=== PATIENT | female | born 1960 | race Caucasian/White ===

== ENCOUNTER 2019-05-23 10:00 | Inpatient (IN) ==
--- NOTE | 2019-05-23 11:22 | Diag Imaging Result Doc PS360 ---
CHEST-PORTABLE - 05/23/2019 INDICATION: COUGH/SPUTUM COMPARISON: None FINDINGS: There is a left PICC line in good position with the catheter tip at the upper SVC. Lung volumes are low. There are nonspecific increased markings particularly in the right lung base. Heart size is top normal. No pneumothorax or pleural effusion. IMPRESSION: Nonspecific atelectasis or faint infiltrate in the right lung base. Electronically signed by Raffi Shea 05/23/2019 11:19 AM
[2019-05-23 11:26] LABS: ALLEN TEST YES; BE 2.8 mmoll (-3.0-3.0); BLOOD TYPE ARTERIAL; MODALITY ROOM AIR; O2HB 93.4 % (95.0-99.0); PCO2(98.6) 40 mmHg (35-45); PO2(98.6) 72 mmHg (60-100); SAMPLE BLOOD; SAO2 96.3 % (95.0-100.0); THB 10.6 g/dL (11.5-17.4); pH(98.6) 7.44 (7.35-7.45)
[2019-05-23 11:30] LABS: BASO# 0.04 X1000 (0.0-0.2); BASO% 0.6 % (0.0-0.8); EOS# 0.04 X1000 (0.0-0.7); EOS% 0.6 % (0.0-10.0); HEMATOCRIT 33.2 % (37.0-47.0); HEMOGLOBIN 10.6 g/dL (12.0-16.0); LYMPH% 16.9 % (20.5-51.1); MCH 28.9 PG (27-31); MCHC 31.9 g/dL (33-37); MCV 90.5 FL (81-99); MONO# 0.41 X1000 (0.11-0.59); MONO% 5.8 % (1.7-9.3); MPV 10.5 FL (7.4-10.4); NEUT# 5.42 X1000 (1.4-6.5); NEUT% 76.1 % (42.2-75.2); PLT 240 X1000 (130-400); RBC 3.67 XMIL (4.2-5.4); RDW 12.8 % (11.5-14.5); WBC 7.11 X1000 (4.8-10.8)
[2019-05-23 11:51] LABS: AGAP 8; BUN 10 mg/dL (8-22); CALCIUM 7.6 mg/dL (8.8-10.2); CHLORIDE 101 mmol/L (98-107); COSMO 267; CREATININE 0.7 mg/dL (0.5-0.9); ESTIMATED GFR > 60; GLUCOSE 97 mg/dL (70-104); POTASSIUM 5.5 mmol/L (3.5-5.1); SODIUM 134 mmol/L (136-145); TCO2 25 mmol/L (25-35)
--- NOTE | 2019-05-23 13:29 | PROVIDER DOCUMENTATION ---
This chart was entered by Nuzhat Paulson Scribe, acting as scribe for Adonay Martinez MD. HPI-Fever - General Chief Complaint: Fever Stated Complaint: FEVER Time Seen by Provider: 05/23/19 10:15 Source: patient Allergies/Adverse Reactions: Patient Allergies Allergy/AdvReac Type Severity Reaction Status Date / Time cephalexin [From Keflex] Allergy RASH Verified 05/13/19 10:06 ciprofloxacin [From Cipro] Allergy RASH Verified 05/13/19 10:06 Sulfa (Sulfonamide Allergy RASH Verified 05/13/19 10:06 Antibiotics) tb skin test Allergy RASH Uncoded 05/23/19 10:18 Home Medications: Home Medication List Medication Instructions Recorded Confirmed Last Taken Type Albuterol Sulfate [Albuterol 2 puff INH Q4H PRN PRN 05/23/19 05/23/19 05/23/19 History Sulfate Hfa] Atenolol 1 tab PO DIRECTED 05/23/19 05/23/19 05/23/19 History Azelastine 137 Mcg Nasal [place] 2 puff INH BID 05/23/19 05/23/19 05/23/19 History [Astelin Nasal [place]] Buprenorphine HCl/Naloxone HCl 0.5 tab SUBLINGUAL DIRECTED 05/23/19 05/23/19 05/23/19 History [Buprenorp-Nalox 8-2 mg Sl Film] Celecoxib 1 tab PO PRN PRN 05/23/19 05/23/19 2 Weeks Ago History ~05/09/19 Ertapenem 1 gm/Ns [Invanz 1 gm/Ns] 1 dose IV DAILY 05/23/19 05/23/19 05/23/19 History Escitalopram [Lexapro] 2 tab PO QAM 05/23/19 05/23/19 05/23/19 History Folic Acid 1 tab PO DAILY 05/23/19 05/23/19 05/23/19 History Furosemide 1 tab PO DAILY 05/23/19 05/23/19 05/23/19 History Levothyroxine [Synthroid] 1 tab PO QAM 05/23/19 05/23/19 05/23/19 History Linaclotide [Linzess] 1 tab PO QAM 05/23/19 05/23/19 05/23/19 History Liraglutide [Victoza] 1 dose IM DAILY 05/23/19 05/23/19 05/23/19 History Metformin HCl [Metformin HCl ER] 1 tab PO BID 05/23/19 05/23/19 05/23/19 History Modafinil 2 tab PO QAM 05/23/19 05/23/19 05/23/19 History Montelukast [Singulair] 1 tab PO QHS 05/23/19 05/23/19 05/22/19 History Olopatadine [Patanase] 2 puff INH BID 05/23/19 05/23/19 05/23/19 History - History of Present Illness-Fever Nature of Presenting Problem: Patient is a 58 year old female who presents with fever and productive cough. States symptoms started this morning. Report she is currently on infusions of Invanz for an UTI that is being followed by Dr. Dempsey. Does not report nausea and vomiting. Fever Severity/Quality: reports: greater than 102 F Onset/Duration: reports: this morning Timing: reports: still present Severity: reports: mild Recent Illness?: reports: UTI Cognitive Baseline: alert, oriented x3 Associated Symptoms: reports: cough Similar Symptoms Previously?: No Recently seen or treated by another doctor?: Yes Review of Systems - Adult - REVIEW OF SYSTEMS - ADULT Constitutional: reports: see HPI, fever. denies: chills, fatique Eyes: reports: no symptoms reported Ears, Nose, Mouth & Throat: reports: sinus problem (drainage). denies: tinnitus, throat pain Cardiovascular: reports: no symptoms reported Respiratory: reports: see HPI, cough. denies: shortness of breath, wheezing Gastrointestinal: reports: no symptoms reported Genitourinary: reports: frequency. denies: discharge, hematuria Musculoskeletal: reports: back pain (lower). denies: muscle aches, neck pain Integumentary: reports: no symptoms reported Neurological: reports: no symptoms reported Psychiatric: reports: no symptoms reported Endocrine: reports: no symptoms reported Hematologic/Lymphatic: reports: no symptoms reported Allergic/Immunologic: reports: no symptoms reported All Other Systems: Reviewed and Negative Past History - Adult - PAST MEDICAL HISTORY-ADULT Review of Records: reports: Old Records Reviewed, Nursing Assessment Review, Medications Reviewed, Social history reviewed & non-contributory. Major Childhood Illnesses: reports: denies history Cardiovascular: reports: HTN Respiratory: reports: asthma, sleep apnea Gastrointestinal: reports: IBS Obstetrical/Gynecological: reports: denies history Genitourinary: reports: denies history Musculoskeletal: reports: chronic pain, fibromyalgia Neurological: reports: denies history Psychiatric: reports: anxiety Endocrine/Immune: reports: Diabetes, thyroid disorder Other Conditions: reports: denies history - PRIOR SURGERIES/PROCEDURES Surgical/Procedure History: reports: hysterectomy, , gastric bypass - IMMUNIZATION STATUS Childhood Immunizations: See Nurse Assessment Flu Vaccine: See Nurse Assessment - FAMILY HISTORY Family History: reviewed, not pertinent - SOCIAL HISTORY Smoking: denies Substance Use: denies Physical Exam-General - PHYSICAL EXAM-ADULT Initial Vital Signs Reviewed: Yes - CONSTITUTIONAL General Appearance: alert, no apparent distress. negative: lethargic - HEAD, EARS, NOSE, MOUTH & THROAT HENMT: normocephalic/atraumatic, moist mucous membranes. negative: angioedema - RESPIRATORY Respiratory: chest non-tender, lungs clear, normal breath sounds. negative: crackles, stridor, wheezing - CARDIOVASCULAR Cardiovascular: normal peripheral pulses, regular rate, rhythm. negative: tachycardia - GASTROINTESTINAL (ABDOMEN) Abdominal Exam: normal bowel sounds, non tender, soft. negative: guarding, rebound - MUSCULOSKELETAL Extremity: non-tender, normal inspection. negative: deformity - SKIN Integumentary: normal color, normal turgor, warm/dry. negative: diaphoresis, erythema, rash - NEUROLOGIC Neurologic: grossly normal. negative: aphasia, facial droop - PSYCHIATRIC Psych/Mental Status: normal mood/affect, oriented x 3. negative: anxious Progress - PLAN OF CARE/RESULTS Progress/Plan/Lab Results: Vital Signs - 8 hr 05/23/19 10:04 05/23/19 10:11 05/23/19 11:00 Temperature 98.9 F Pulse Rate 88 Respiratory Rate 17 Blood Pressure 111/73 127/83 O2 Sat by Pulse Oximetry 94 L 98 93 L 05/23/19 12:00 05/23/19 13:00 Temperature Pulse Rate Respiratory Rate Blood Pressure O2 Sat by Pulse Oximetry 96 99 05/23/19 11:12 Influenza Screen - Final Nasopharyngeal Laboratory Results - last 24 hr 05/23/19 05/23/19 05/23/19 11:12 11:12 11:12 WBC 7.11 RBC 3.67 L Hgb 10.6 L Hct 33.2 L MCV 90.5 MCH 28.9 MCHC 31.9 L RDW Std Deviation 12.8 Plt Count 240 MPV 10.5 H Immature Gran % (Auto) 0.0 Neut % (Auto) 76.1 H Lymph % (Auto) 16.9 L [place] % (Auto) 5.8 Eos % (Auto) 0.6 Baso % (Auto) 0.6 Immature Gran # (Auto) 0.00 Neut # (Auto) 5.42 Lymph # (Auto) 1.20 [place] # (Auto) 0.41 Eos # (Auto) 0.04 Baso # (Auto) 0.04 Specimen Type Sample Site pH pCO2 pO2 HCO3 Base Excess Oxyhemoglobin ABG O2 Sat (Calculated) ABG O2 Saturation ABG Carboxyhemoglobin ABG Methemoglobin Mathew Test A-a O2 Difference Total Hemoglobin Lactate Blood Gas Modality FiO2 % Sodium 134 L Potassium 5.5 H Chloride 101 Carbon Dioxide 25 Anion Gap 8 BUN 10 Creatinine 0.7 Estimated GFR/1.73 m2 > 60 BUN/Creatinine Ratio 14 Glucose 97 Calculated Osmolality 267 Calcium 7.6 L Plasma Lactate 0.8 05/23/19 11:16 WBC RBC Hgb Hct MCV MCH MCHC RDW Std Deviation Plt Count MPV Immature Gran % (Auto) Neut % (Auto) Lymph % (Auto) [place] % (Auto) Eos % (Auto) Baso % (Auto) Immature Gran # (Auto) Neut # (Auto) Lymph # (Auto) [place] # (Auto) Eos # (Auto) Baso # (Auto) Specimen Type ARTERIAL Sample Site R RADIAL pH 7.44 pCO2 40 pO2 72 HCO3 27.0 H Base Excess 2.8 Oxyhemoglobin 93.4 L ABG O2 Sat (Calculated) 14.0 L ABG O2 Saturation 96.3 ABG Carboxyhemoglobin 2.00 ABG Methemoglobin 1.0 Mathew Test YES A-a O2 Difference 28.0 Total Hemoglobin 10.6 L Lactate 0.70 Blood Gas Modality ROOM AIR FiO2 % 21.0 Sodium Potassium Chloride Carbon Dioxide Anion Gap BUN Creatinine Estimated GFR/1.73 m2 BUN/Creatinine Ratio Glucose Calculated Osmolality Calcium Plasma Lactate Orders Category Date Time Status Saline Loc NOW Care 05/23/19 11:00 Active CHEST-PORTABLE [RAD] Stat Exams 05/23/19 11:00 Completed ABG [RESP] Routine Lab 05/23/19 11:16 Completed BASIC METABOLIC PANEL [CHEM] Stat Lab 05/23/19 11:12 Completed BLOOD CULTURE [BLDCUL] Stat Lab 05/23/19 11:10 Results CBC WITH ELECTRONIC DIFF [HEME] Stat Lab 05/23/19 11:12 Completed INFLUENZA SCREEN A/B Stat Lab 05/23/19 11:12 Completed LACTATE, PLASMA [CHEM] Stat Lab 05/23/19 11:12 Completed SPUTUM CULTURE WITH GRAM STAIN [RM] Routine Lab 05/23/19 11:18 Ordered Result Diagrams: 05/23/19 11:12 05/23/19 11:12 - REASSESSMENT Reassessment #1 Time Reassessed: 13:15 Status: unchanged (HAS A TOUCH OF PNEUMONIAW/ FAILED OUT-PT TREATMENT (INVANCE FOR KLEB UTI-DR DEMPSEY)) - XRAY 1 XRAY Study: Chest Impression: See EMR Report (CHEST-PORTABLE - 05/23/2019 INDICATION: COUGH/SPUTUM COMPARISON: None FINDINGS: There is a left PICC line in good position with the catheter tip at the upper SVC. Lung volumes are low. There are nonspecific increased markings particularly in the right lung base. Heart size is top normal. No pneumothorax or pleural effusion. IMPRESSION: Nonspecific atelectasis or faint infiltrate in the right lung base. Electronically signed by Raffi Shea 05/23/2019 11:19 AM 05/23/19 1119 Interpreting Physician: Raffi Shea MD Dictated Date/Time: 05/23/19 1117 cc: Adonay Martinez MD; Fabricio Del Valle DO) - CONSULTS/PCP/HOSPITALIST Notification #1 *Consult/PCP/Hospitalist*: MARNI Penny for Hospitalist Time Discussed: 12:51 Reason/Comments: Dr. Martinez consulted with Hemalatha about patient. #2 Consult: Dr. Joselito Del Valle Time Discussed: 13:08 Reason/Comments: Dr. Martinez consulted with Dr. Del Valle about patient Consult Disposition: Admit Departure - Departure Date of Disposition Decision: 05/23/19 Time of Disposition Decision: 13:24 DIAGNOSIS: UTI due to Klebsiella species Pneumonia Qualifiers: Pneumonia type: due to unspecified organism Laterality: right Lung location: lower lobe of lung Qualified Code(s): J18.1 - Lobar pneumonia, unspecified organism Disposition: ADMITTED INPATIENT 09 Certified Medical Emergency: Emergent Condition: Stable Referrals and Follow-Ups: Eligio,Fabricio A., DO [Primary Care Provider] - - Critical Care Note This patient required my direct & personal management of CC.: No Attestation - Physician/ MARIAELENA Attestation The physician spent face to face time with patient:: Yes Advanced Practice Provider documentation review:: Supervising physician onsite and consulted in the evaluation and care of this patient. The physician did have a face to face encounter with the patient. This chart was documented by the indicated scribe, (Nuzhat Paulson Scribe) and accurately reflects the services I performed and decisions made by me, Adonay Martinez MD, as attested by the provider's signature.
[2019-05-23] MEDS ORDERED: NS 1,000 ML IV ONE (13:45)
[2019-05-23] MEDS ORDERED: TORADOL IV PRN (13:45)
[2019-05-23] MEDS ORDERED: TYLENOL PO PRN (13:45)
[2019-05-23] MEDS ORDERED: ZOFRAN IV PRN (13:45)
[2019-05-23] MEDS ORDERED: TYLENOL PO ONE (14:04)
[2019-05-23] MEDS: INVANZ 1 GM/NS 1 GM/50 ML IVPB IV SCH (15:53)
[2019-05-23] MEDS: ZYVOX PO SCH (18:21)
[2019-05-23] MEDS ORDERED: SUBOXONE 8 MG/2 MG SL PRN ×2 (18:45→19:00)
--- NOTE | 2019-05-23 19:54 | INFECTIOUS DISEASE PROGRESS NO ---
DATE: 05/23/2019 PRESENT ILLNESS: Ms. Powell is in the midst of outpatient treatment for a Klebsiella urinary tract infection, which is extended spectrum beta lactamase producing. This morning, we sent her to the ER after complaints of 102 fever with cough and green sputum. MEDICATIONS: She has been receiving Invanz 1 g IV every 24 hours as an outpatient. PHYSICAL EXAMINATION: Vital Signs: Temperature is 98.9 degrees, pulse rate 88, respiratory rate 17, blood pressure 127/83, O2 saturation is 98% on room air. General: This is a somewhat ill- appearing, middle-aged female. She is sitting up on the side of the bed in no acute distress. HEENT: Atraumatic, normocephalic. Oral mucous membranes are pink and moist. Conjunctivae are pale. Neck: Supple. Trachea is midline. Cardiovascular: Heart rate is regular. Respiratory: Lung sounds are clear to auscultation in the upper lobes, diminished with some rales noted in the bases. No work of breathing is noted. Abdomen: Soft, obese and nontender. Bowel sounds are active. Integumentary: Skin is warm and dry. There is a PICC line in place to the left upper arm. That site is without edema, erythema, or drainage. Neurologic: She is awake, alert, oriented, and able to ambulate independently. LABORATORY AND X-RAY: Today, her white count is 7.11, hemoglobin 10.6, platelet count 240,000. ABGs on room air show a pH of 7.44, pCO2 40, pO2 72, HC03 27. Creatinine is 0.7. Estimated GFR is greater than 60. Blood cultures have been drawn and are pending. Flu swab is negative. Chest x-ray shows atelectasis or faint infiltrate in the right lung base. ASSESSMENT AND PLAN: Ms. Powell is being treated for an extended spectrum beta lactamase producing Klebsiella urinary tract infection using Invanz, which we will continue at this time. She has developed what looks like a possible mild pneumonia per x-ray and had a fever of 102 this morning, per her report. We will start her on Zyvox 600 mg by mouth every 12 hours to cover the possibility of Methicillin resistant Staphylococcus aureus. 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 We will go ahead and order immunoglobulins to be drawn and if those levels are low, we will infuse her here in the hospital. These plans have been discussed with and recommended by Dr. Dempsey. COMORBIDITIES: For Ms. Powell, include multiple antibiotic allergies, obstructive sleep apnea, irritable bowel syndrome, anxiety, depression, and frequent UTIs. Dictated by MARNI Dempsey for Brice Dempsey MD cc: MD Fabricio Garcia, DO [place]
[2019-05-23] MEDS ORDERED: INVANZ 1 GM/NS 1 GM/50 ML IVPB IV SCH (20:00)
[2019-05-23] MEDS: GLUCOPHAGE XR PO SCH (20:24)
[2019-05-23] MEDS: ZYRTEC PO SCH (20:24)
[2019-05-23] MEDS: SINGULAIR PO SCH (20:24)
[2019-05-23] MEDS: ASTELIN NASAL SPRAY NAS SCH (20:24)
[2019-05-23] MEDS ORDERED: SUBOXONE 8 MG/2 MG SL SCH (21:02)
[2019-05-23] MEDS: SUBOXONE 8 MG/2 MG SL SCH (22:04)
[2019-05-23 23:01] LABS: URINE SOURCE CLEAN CATCH
[2019-05-23 23:14] LABS: BILIRUBIN URINE NEGATIVE (NEGATIVE); BLOOD URINE NEGATIVE (NEGATIVE); COLOR STRAW; GLUCOSE URINE NEGATIVE (NEGATIVE); KETONE URINE NEGATIVE (NEGATIVE); LEUKOCYTES URINE NEGATIVE (NEGATIVE); NITRITE URINE NEGATIVE (NEGATIVE); PROTEIN URINE NEGATIVE (NEGATIVE); SP GRAVITY URINE 1.006; TURBIDITY URINE CLEAR (CLEAR); UR EPITHELIAL CELLS <10 /HPF (<10); URINE BACTERIA NEGATIVE /HPF; URINE RBC <10 /HPF (<10); URINE WBC <10 /HPF (<10); UROBILINOGEN URINE NORMAL (NORMAL)
--- NOTE | 2019-05-24 01:49 | HISTORY AND PHYSICAL ---
INDICATION FOR ADMISSION: Fever despite IV antibiotics. HISTORY OF PRESENT ILLNESS: Ms. Powell is a very complicated medical patient who has a variety of medical problems including but not limited to, a recent diagnosis of IgG deficiency as well persistence of Klebsiella pneumoniae bacteria predominantly found in urine cultures. She carries a variety of other diagnoses as well including but not limited to, type 2 diabetes, hypothyroidism, obesity, fibromyalgia, dyslipidemia, osteopenia, iron deficiency, postmenopausal, tricuspid valve disorder, obstructive sleep apnea, personal history of colon polyps, spondylosis of the lumbar sacral region, stress incontinence, premature menopause, vitamin D deficiency, constipation, left shoulder pain, fatigue, HSV type 1, allergic rhinitis. She presents to the emergency room having been referred over from the infectious disease service after presenting for infusion of outpatient antibiotic, but being found to have less than 24 hours of productive cough with fever to 102.0. She was subsequently diverted from the infusion clinic to the emergency room for evaluation. She is noted to have nonspecific changes on chest x-ray. She is admitted for possible outpatient failure with questionable community-acquired pneumonia. Further diagnostic workup and consultation would be indicated. She is sensitive to a variety of medications including penicillin, Keflex, Bactrim, sulfa-based medications and ciprofloxacin. ALLERGIES: Penicillin, Keflex, TB test, Bactrim, sulfa, Lyrica, hydrocodone, Naltrexone, Crestor, and Cipro. CURRENT MEDICATIONS: On admission including Zyrtec 10 mg once daily, Lexapro 40 mg once daily, Centrum Silver [id number], estradiol patch 1 patch twice weekly, Folic acid 1 mg once daily, Dulera 2 puffs b.i.d., Singulair 10 mg once daily, vitamin D supplement over the counter, B12 1000 mcg once daily, Ventolin HFA 1 to 2 puffs q.6 to 8 hours, atenolol 25 mg b.i.d., Atrovent nasal spray 1 spray to each nostril t.i.d. p.r.n., Astelin 137 mcg 2 sprays b.i.d., Victoza 1.8 mg daily, metformin 500 mg b.i.d., Linzess 290 mcg once daily, Synthroid 0.25 mg once daily, Celebrex 100 mg p.o. daily p.r.n., Suboxone as directed, Lyrica 50 mg 2 p.o. b.i.d. FAMILY HISTORY: The patient's father is 78 years old with multiple medical problems, osteoarthritis, connective tissue disease, coronary disease with stents, high blood pressure and diabetes, as well as Meniere's. Mother with osteoarthritis, blood pressure and diabetes. No brothers. Sister with osteoarthritis, breast cancer diagnosed in 2013, blood pressure, ongoing tobacco use. SOCIAL HISTORY: The patient is with 2 children, a 32-year-old boy and a 30-year-old boy, 2 grandchildren 4 years old and 12 months old. The patient has been for 36 years in 2019. 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 The patient is a nonsmoker. She drinks 3 to 4 drinks per month mostly liquor based. PAST SURGICAL HISTORY: date unknown, hysterectomy without oophorectomy in 1991, oophorectomy in 2010, septoplasty in 1991, gastric bypass in , bilateral oophorectomy in 2010. No surgery since 2010. As of September 2018 there is history of injections in the low back dating December of 2016. REVIEW OF SYSTEMS: Twelve-point review of systems is unremarkable except that noted within the HPI. PHYSICAL EXAMINATION: VITAL SIGNS: Blood pressure 111/73, respirations of 17, pulse of 88, temperature is 98.9 degrees. The patient's weight is 210 pounds, this is down approximately 5 pounds from 05/02/2019. HEENT: Normocephalic, atraumatic. Pupils are equal and reactive to light and accommodation. NECK: Soft and supple without lymphadenopathy or bruits. CARDIOVASCULAR: Regular rate and rhythm. There is a 3+ systolic murmur at the right sternal border. LUNGS: With decreased breath sounds throughout. No wheezes, rhonchi or rales. ABDOMEN: Soft with nonspecific and generalized tenderness but without guarding, rebound or rigidity. EXTREMITIES: Benign without clubbing, cyanosis or edema. NEUROLOGICAL: Cranial nerves II-XII are grossly intact. The patient is alert oriented x3 without any cognitive deficiencies. LABORATORY DATA: Obtained on admission, white blood cell count 7.11, H H of 10.6 and 33.2, with platelets at 240,000. ABG with a pH of 744, pCO2 of 40, PO2 at 72, saturating at 96% on room air. Sodium is 134, potassium is 55, chloride 104, bicarbonate is 25, BUN and creatinine at 10 and 0.7, glucose is 114, calcium is slightly low at 7.6, lactate is 0.8. Nasopharyngeal swab is negative for flu A and flu B. Blood cultures were pending at the time of dictation. Chest x-ray is interpreted as left PICC line with good position, nonspecific atelectasis or faint infiltrate in the right lung base. These markings are at best nonspecific. IMPRESSION: A 58-year-old with history of Klebsiella pneumonia, difficult to clear as an outpatient on traditional oral medication, this within the context of being IgG deficient. The patient has not been able to get insurance approval for IVIG infusion, perhaps now having failed outpatient infusion clinic, and now being admitted to the hospital with febrile illness. This should be considered more closely, certainly a differential diagnosis for fever includes those non- bacterial causes including atelectasis, tumor, autoimmune and viral. Await results of urine and blood cultures. I suspect that a CT scan of the chest tomorrow might be appropriate. Another potential source might be cardiac and valvular related, a cardiac echocardiogram to rule out the presence of any vegetation is being ordered as well. Most recent IgG level dated November of 2018 noted to be 639. The patient and understand the course of treatment and plan. No further issues at this time. Note is dictated on the evening of admission. cc: Fabricio Del Valle DO
[2019-05-24] MEDS: SUBOXONE 8 MG/2 MG SL SCH ×4 (03:14→22:12)
[2019-05-24] MEDS: ZYVOX PO SCH ×2 (06:20→17:04)
[2019-05-24] MEDS: LINZESS PO SCH (08:39)
[2019-05-24] MEDS: PROVIGIL PO SCH (08:39)
[2019-05-24] MEDS: LEXAPRO PO SCH (08:39)
[2019-05-24] MEDS: GLUCOPHAGE XR PO SCH ×2 (08:39→22:14)
[2019-05-24] MEDS: SYNTHROID PO SCH (08:39)
[2019-05-24] MEDS: FOLIC ACID PO SCH (08:39)
[2019-05-24] MEDS: LASIX PO SCH (08:40)
[2019-05-24] MEDS: VITAMIN D PO SCH (08:40)
[2019-05-24] MEDS: ASTELIN NASAL SPRAY NAS SCH ×2 (08:40→22:13)
[2019-05-24] MEDS: VENTOLIN HFA INH PRN (08:40)
[2019-05-24] MEDS: VICTOZA SUBQ SCH (08:41)
[2019-05-24] MEDS ORDERED: SODIUM CHLORIDE IV SCH (09:00)
[2019-05-24] MEDS ORDERED: ERTAPENEM IV SCH (09:00)
[2019-05-24] MEDS: TENORMIN PO SCH (09:10)
[2019-05-24] MEDS: MUCINEX PO SCH ×2 (09:10→22:13)
--- NOTE | 2019-05-24 10:04 | Diag Imaging Result Doc PS360 ---
CT THORAX W/O CONTRAST - 05/24/2019 INDICATION: Fever 102.8, IV ABX, non-specific CXR COMPARISON: Chest x-ray from 05/23/2019 FINDINGS: There are some faint infiltrates in the lung bases bilaterally, right greater than left. These are mainly interstitial. There is also prominent intralobular septal thickening in the lung bases bilaterally suggesting interstitial pulmonary edema. Trace right pleural effusion. Heart size is top normal. There are gastric bypass changes. Otherwise upper abdominal images are unremarkable. There is a left PICC line in good position. There are moderate degenerative changes of the spine. No acute or suspicious bony lesion. IMPRESSION: Faint bilateral infiltrates right greater than left. Trace right pleural effusion. The imaging findings are more suggestive of pulmonary edema. This exam was performed using automated exposure control, adjustment of mA or kV according to patient size, and/or use of iterative reconstruction technique Electronically signed by Raffi Shea 05/24/2019 10:02 AM
[2019-05-24] MEDS ORDERED: GAMUNEX-C 10% IV ONE (15:00)
[2019-05-24] MEDS: INVANZ 1 GM/NS 1 GM/50 ML IVPB IV SCH (15:55)
--- NOTE | 2019-05-24 15:58 | INFECTIOUS DISEASE PROGRESS NO ---
DATE: 05/24/2019 PRESENT ILLNESS: Ms. Powell has been admitted for a possible pneumonia with a reported fever, cough, and green sputum at home. She has also been in the midst of outpatient treatment for a Klebsiella urinary tract infection which is extended spectrum beta lactamase producing. She also has an immunoglobulin deficiency with an IgG of 569. MEDICATION: She has receiving been receiving Invanz 1 g IV every 24 hours. Yesterday we added on Zyvox 600 mg by mouth every 12 hours. PHYSICAL EXAM: Vital Signs: Temperature is 98.4 degrees, pulse rate 86, respiratory rate 22, blood pressure 111/68. O2 saturation is 96% on room air. General: This is a chronically ill- appearing, middle-aged female. She is lying in bed currently in no acute distress. HEENT: Atraumatic, normocephalic. Oral mucous membranes are pink and moist. Conjunctivae are pale. Neck: Supple. Trachea is midline. Respiratory: Lung sounds are bilaterally clear to auscultation and diminished in the bases. No work of breathing is noted. Cardiovascular: Heart rate is regular. S1, S2 noted. Abdomen: Soft, obese, and nontender. Bowel sounds are active. Integumentary: Skin is warm, dry, and intact. There is a PICC line in place to the left upper arm. The site is without edema, erythema, or drainage. Neurologic: She is awake, alert, oriented, and able to ambulate independently. LABORATORY AND X-RAY: Immunoglobulin report shows an IgA of 184, IgG of 569, IgM of 62. A urinalysis done yesterday shows clear urine with no bacteria and less than 10 WBCs. Sputum culture is pending as well as pending blood cultures. Today a CT of the chest shows faint bilateral infiltrates, right greater than left, with a trace right pleural effusion suggesting pulmonary edema. ASSESSMENT AND PLAN: Ms. Powell is being treated for urinary tract infection using Invanz. She is on day 11 of a 14 day course of treatment. She will need 3 more days of the Invanz, after which time we will hold the antibiotic and flush her PICC line and then repeat the urine to make sure the infection has been eradicated. For now, we will go ahead and continue the Zyvox as ordered for the possibility of pneumonia. We will also draw a procalcitonin. She does have an immunoglobulin deficiency, so we will provide 20 g of IVIG. We will continue to wait on the final sputum and blood cultures. These plans have been discussed with and recommended by Dr. Dempsey. COMORBIDITIES: For Ms. Powell include multiple antibiotic allergies, obstructive sleep apnea, irritable bowel syndrome, anxiety, depression, and an immunoglobulin deficiency. Dictated by MARNI Dempsey for Brice Dempsey MD cc: MD Fabricio Garcia, DO [place]
[2019-05-24] MEDS ORDERED: GAMUNEX C IV ONE (16:00)
[2019-05-24] MEDS ORDERED: DILUENT IV ONE (16:00)
--- NOTE | 2019-05-24 19:15 | ECHO REPORT ---
ORDER DATE: 05/24/2019 MEASUREMENTS: 1. Septal thickness 1.4. 2. Left ventricular internal diameter in diastole 3.2. 3. Left atrium 3.4. 4. Aortic root 2.7. SUMMARY: 1. Fair quality study. 2. Aortic valve is trileaflet and opens normally on 2-dimensional images. The peak gradient across aortic valve is 18 mmHg. There is trace aortic regurgitation. Mitral and tricuspid valves are without evidence of structural abnormality while pulmonic valve is not well demonstrated. There is trace mitral regurgitation and [id number] tricuspid regurgitation. The estimated systolic PA pressure by Doppler is 50 mmHg, suggesting moderate pulmonary hypertension. The aortic root is normal size. 3. Normal left ventricular chamber size with mild concentric left hypertrophy is demonstrated. The estimated left ventricular ejection fraction appears to be at least 60%. No regional wall motion abnormalities are evident. Left atrium, right atrium, and right ventricle are normal in size with grossly preserved right ventricular systolic function. 4. No pericardial effusion. 5. Appearance of inferior vena cava suggests normal central venous pressure. CONCLUSION: 1. Fair quality study. 2. Trace of mitral regurgitation and trace of aortic regurgitation. 3. Mild to moderate tricuspid regurgitation with moderate pulmonary hypertension by Doppler. 4. Estimated ejection fraction at least 60% without regional wall motion abnormality evident. 5. Mild left ventricular hypertrophy. cc: MD Fabricio Rizo DO
[2019-05-24] MEDS: DIFLUCAN PO SCH (20:35)
--- NOTE | 2019-05-24 20:52 | PROGRESS NOTE ---
DATE: 05/24/2019 INDICATION FOR PROLONGED HOSPITALIZATION: Ongoing medical workup and ongoing treatment for Klebsiella pneumoniae UTI with IV medication through a PICC line. REASON FOR ONGOING ADMISSION: Ongoing workup and infectious disease evaluation. CLINICAL SUMMARY: Over the past 24 hours, the patient has been admitted to the internal medicine service with fever in excess of 102.8 degrees. She has been continued on IV medication as well as the addition of Zyvox. She continues on 1 g every 24 hours of Invanz per infectious disease service. Sputum culture today is demonstrating 2+ white blood cells and 1+ yeast. Blood cultures have not returned back, and urine was noted to be negative on admission. She has not had a fever in the past 24 hours. T-max at 99.4 degrees, certainly much less than 102.8 degrees reported at home. A CT scan of the chest today for nonspecific changes in the lower lobes, right greater than left, was obtained, with findings consistent with faint bilateral infiltrates, right greater than left, more consistent with interstitial pulmonary edema than true focal consolidation suggestive of pneumonia. Additional laboratory obtained by Infectious Disease demonstrated a decrease in overall IgG levels at 569, previously at 639, both of these readings less than the standard of 700 or greater. Infectious disease note is reviewed. She will be receiving 20 g of IVIG as part of her hospitalization. OBJECTIVE: Vital Signs: Vitals at 1600: Blood pressure 108/52, temperature 98.9 degrees, respirations are 19, pulse of 73, saturating 94% on room air. Inputs and outputs for this hospitalization: The patient is up approximately 591 mL. Glucose ranging between 93 and 131 on this admission. HEENT: Unremarkable. Cardiovascular: Regular rate and rhythm. Lungs: Decreased breath sounds in the right posterior base, with no wheezes, rhonchi, or rales. Abdomen: Soft. Extremities: Benign. Neurologic: Cranial nerves 2 through 12 are grossly intact. Patient is alert and oriented x3 without any cognitive deficiencies. IMPRESSION: 58-year-old female with multiple drug sensitivities and outpatient failure of oral antibiotic for Klebsiella urinary tract infection. She is currently in the middle of a 14 day course of intravenous Invanz via peripherally inserted central catheter line. She reports less than 23 hours of febrile illness starting yesterday morning, for which she was diverted to the ER for further evaluation. Upon completion of chest x-ray, she was noted to have nonspecific changes in the chest x-ray, and subsequently underwent admission. Through the course of the day, additional laboratory and CT scan/imaging have been obtained. She continues on Zyvox and Invanz. Based on sputum irregularity, we will be adding Diflucan 100 mg once daily for 7 days, following baseline electrocardiogram and serial electrocardiogram for potential prolongation of QT interval. She continues on Zofran and Lexapro which also might influence the QT interval. I have advised the patient that if she truly has no positive blood cultures, nor positive urine, nor definitively positive sputum, and she remains now afebrile for more than 36 to 48 hours, I feel very comfortable letting her go home with the approval of the infectious disease service. We further await return of cardiac echocardiogram as potential cause for recent onset of lower extremity edema, plus or minus pulmonary edema as seen on CT scan. No further issues at this time. 40 minutes spent on floor/computer review/bedside discussion and dictation of note. JUAN cc: DO TEO Marcial
--- NOTE | 2019-05-24 20:56 | EKG Report ---
Test Performed on : 05/24/2019 8:47:30 PM Test Reason : Pre-Diflucan Blood Pressure : / mmHG Vent. Rate : 075 BPM Atrial Rate : 075 BPM P-R Int : 200 ms QRS Dur : 088 ms QT Int : 402 ms P-R-T Axes : 036 -08 009 degrees QTc Int : 448 ms Normal sinus rhythm. Cannot rule out Anterior infarct , age undetermined Abnormal ECG No previous ECGs available Confirmed by Sonny MARTIN, Vincent Pack ([id number]) on 05/25/2019 7:32:17 AM
--- NOTE | 2019-05-24 21:12 | PROGRESS NOTE ---
DATE: 05/24/2019 SUBJECTIVE: I received a call this morning from the staff at [facility] regarding concerns and discrepancies in patient's dose for some Suboxone. She was admitted last night to the internal medicine service for febrile illness and potential failure of outpatient therapy for Klebsiella UTI, but also found to have nonspecifically abnormal chest x-ray. I did see the patient last night at the bedside for clarification of medications, specifically those prescribed by the pain clinic in [place]. The patient has a long history of multiple pain management providers including, but not limited to, Dr. Crook, Aurora Cdaena, Dr. Ramirez, Dr. Patton, Dr. Robledo and then most recently Dr. Jimenes (sp?). At the time that she was admitted, we reviewed her pain medications and she reported to me that she was taking an 8 mg/2 mg Suboxone 1/2 in the morning, 1/2 at noon, 1/2 in the afternoon and 1/2 in the p.m. However, our office records suggest that she was taking 1 pill once a day. The patient presented some strips sublingual of the Suboxone, which she brought to the hospital. I did not verify the doses visually, but was aware that she was in possession of some Suboxone sublingual strips. On the morning of the , I was contacted by the floor nurse who states that there was some discrepancy and concern with regards to the patient's current Suboxone dose. This prompted me to call both the hospital pharmacy (X2) as well as the pain clinic (X1) and the local pharmacy for the patient. I am not managing (nor have I ever managed) this aspect of her care (ie. pain management) . Despite my personal verification at the bedside that she was taking 1 Suboxone per day (as per our clinical notes), it was discovered (at mid-day rounds) that she was actually taking 2 Suboxone per day (she had failed to relay this change and therefore our records were inaccurate). This new dose was divided in such a way that she takes 1/2 (of an 8/2mg strip) four times a day. Again this information had not been related to me the night that she was admitted, nor was this information updated and included in our clinic record. It has always been my position, that a patient will continue to be monitored and medicated (independent of any primary care responsibilities) if they are a chronic pain patient. I believe this a potential source of confusion/frustration over her exact dose, therefore the staff called me. I advised them that I had seen sublingual strips of Suboxone in the patient's possession (on the night she was admitted) and due to the discrepancy in her current dosing, that it would be reasonable to go in and have the patient produce a strip (for verification of current dosing) since there remained on- going confusion. I knew at this point after talking to her pain clinic staff and the local pharmacy that she was indeed taking a Suboxone dose of 8/2 b.i.d., which could be translated into 1/2 sublingual strip q.i.d. for a similar and equivalent dose. I was unclear as to the strength of the strips she had shown me the night before, and advised the staff that they should go in and verify the dose of the Suboxone. It is my understanding after that, that the staff presented and inquired of the patient if she had any Suboxone on her possession and according to the nursing staff, the patient denied having any controlled substance in her possession. I also understand that the nursing staff asked the patient if she minded them looking for any accidentally misplaced/forgotten medications. The patient reported that her personal bags were emptied by the staff with the patient in attendance. Upon further questioning, the charge nurse asked the patient, "do you have any of this particular medicine with you?," the patient denied having any with her. It appears that the patient's placed a dose of the Suboxone in the patient's eyeglass case unbeknownst to the patient (as reported by the patient). There appeared to be some increased interest on behalf of the patient that the eyeglass case need not be subject to search; however, upon opening the eyeglass case, the staff discovered 3 packets of sublingual Suboxone, 2 having been used (opened) and 1 not (unused). These were placed in a sealed envelope and stent to the pharmacy. The patient refused to sign chain of command. I personally called the pharmacist at the bed side to ensure that the patient will be able to eat her privately purchased and privately owned medication back at the time of her discharge. I met with the patient and at the bedside at noon for more than 35 minutes explaining that the appearance and perception versus reality of what has actually occurred can be blurred and misconstrued. However, in my 25 years of history I have never had to ask the patient if they brought their narcotics to the hospital with them, nor have I needed to have them secured within the pharmacy vault system. I apologize for this misunderstanding that this was certainly a new experience for me. I feel that much of this problem stems from the patient's failure to advised me that her actual dose was not 8/2 once daily, but 8/2 twice daily divided into 4 doses. I advised the patient and the that the purpose of my visit at the bedside last night was not only to gain historical perspective and to prepare for admission, treatment and plan but also for clarification of medication doses. I reiterated to the patient that it is their responsibility to inform me of any changes in doses. That this should not only be updated with in the clinic record, but also in the hospital record for future admissions. I have asked that the patient be transferred to a different unit for ongoing inpatient medical care due to conflict with floor staff. I have also asked that the patient speak to the patient's advocate/termite control service representative in this regard. There are multiple concerns in this case including: (1) the patient's failure to disclose the change in dose (despite a reasonable attempt to verify dose on admission) (2) the 's hiding of dosing within the patient's eyeglass case, (3) the staff's apparent search/seizure of the patient's personal affects/medications. This has truly been a learning experience for myself and I have expressed this with the patient and the within the context of the mid-day rounds and the evening rounds. RECOMMENDATIONS: No new and/or additional recommendations at this time. We will continue to follow clinically. Perhaps, the patient will be well enough for discharge tomorrow on Thursday05/25/2019. cc: DO TEO Marcial
[2019-05-24] MEDS: SINGULAIR PO SCH (22:13)
[2019-05-24] MEDS: ZYRTEC PO SCH (22:13)
[2019-05-25] MEDS: SUBOXONE 8 MG/2 MG SL SCH ×4 (03:36→21:09)
[2019-05-25] MEDS: ZYVOX PO SCH ×2 (05:33→17:14)
[2019-05-25] MEDS ORDERED: INSULIN PEN NEEDLES ONE (06:24)
[2019-05-25] MEDS: VENTOLIN HFA INH PRN ×3 (08:12→15:20)
[2019-05-25] MEDS: LASIX PO SCH (08:56)
[2019-05-25] MEDS: LEXAPRO PO SCH (08:56)
[2019-05-25] MEDS: SYNTHROID PO SCH (08:56)
[2019-05-25] MEDS: MUCINEX PO SCH ×2 (08:57→21:04)
[2019-05-25] MEDS: LINZESS PO SCH (08:57)
[2019-05-25] MEDS: TENORMIN PO SCH (08:57)
[2019-05-25] MEDS: VITAMIN D PO SCH (08:57)
[2019-05-25] MEDS: FOLIC ACID PO SCH (08:57)
[2019-05-25] MEDS: DIFLUCAN PO SCH (08:57)
[2019-05-25] MEDS: VICTOZA SUBQ SCH (08:58)
[2019-05-25] MEDS: ASTELIN NASAL SPRAY NAS SCH ×2 (09:02→21:03)
[2019-05-25] MEDS: GLUCOPHAGE XR PO SCH ×2 (09:20→21:04)
[2019-05-25] MEDS: PROVIGIL PO SCH (09:40)
[2019-05-25] MEDS ORDERED: PROVIGIL PO ONE (11:30)
[2019-05-25] MEDS: INVANZ 1 GM/NS 1 GM/50 ML IVPB IV SCH (14:43)
--- NOTE | 2019-05-25 15:10 | EKG Report ---
Test Performed on : 05/25/2019 3:03:01 PM Test Reason : follow QT after start meds Blood Pressure : / mmHG Vent. Rate : 070 BPM Atrial Rate : 070 BPM P-R Int : 182 ms QRS Dur : 084 ms QT Int : 412 ms P-R-T Axes : 036 007 006 degrees QTc Int : 444 ms Normal sinus rhythm. Minimal voltage criteria for LVH, may be normal variant Cannot rule out Inferior infarct , age undetermined Abnormal ECG When compared with ECG of 24-MAY-2019 20:47, No significant change was found Confirmed by Vincent Dennis MD ([id number]) on 05/26/2019 7:44:37 AM
--- NOTE | 2019-05-25 15:18 | INFECTIOUS DISEASE PROGRESS NO ---
DATE: 05/25/2019 PRESENT ILLNESS: Ms. Powell is being treated for pneumonia as well as a Klebsiella urinary tract infection which is extended spectrum beta lactamase producing. She also has an immunoglobulin deficiency. MEDICATIONS: She has been receiving Invanz 1 g IV every day. She is also receiving Zyvox 600 mg by mouth every 12 hours. The patient received 1 dose of IVIG 20 g yesterday. PHYSICAL EXAMINATION: Vital Signs: Temperature is 99 degrees, pulse rate 70, respiratory rate 18, blood pressure 98/57, O2 saturation is 94% on room air. General: This is a somewhat ill- appearing, middle-aged female. She is sitting up in the bed, currently in no acute distress. HEENT: Atraumatic, normocephalic. Oral mucous membranes are pink and moist. Conjunctivae are pale. Neck: Supple. Trachea is midline. Cardiovascular: Heart rate is regular. S1-S2 auscultated. Respiratory: Lung sounds are clear to auscultation bilaterally. Diminished in the bases. There is no work of breathing noted. Abdomen: Soft, obese, and nontender. Bowel sounds are active. Integumentary: Skin is warm, dry, and intact, with a PICC line in place to the left upper arm. That site is without edema, erythema, or drainage. Neurologic: She can ambulate independently, and is awake, alert, and oriented. LABORATORY AND X-RAY: None available today. ASSESSMENT AND PLAN: Ms. Powell is receiving daily Invanz for an extended- spectrum B-lactamase producing Klebsiella urinary tract infection. Tomorrow will be her last dose of Invanz, after which time the plan is for her to be discharged home. She states she is feeling better today. We plan to continue Zyvox as ordered. She has received 1 dose of IVIG for her immunoglobulin deficiency. The plan is to leave her peripherally inserted central catheter line in place until next week when the patient is able to follow up in our office. She is going to flush both ports at home daily until we see her and get the urine culture back to verify that the bacteria has cleared. I have spoken with Dyan in OP infusion, who will provide her with flushes to use at home once she is discharged tomorrow. The patient has been instructed regarding followup, procedures, and protocol. As far as the pneumonia is concerned, we will send her down for a chest x-ray in the department to determine whether or not she will need continued treatment, or if the pneumonia has cleared. These plans have been discussed with and recommended by Dr. Dempsey. COMORBIDITIES: For Ms. Powell include multiple antibiotic allergies, obstructive sleep apnea, irritable bowel syndrome, anxiety, depression, and frequent UTIs. Dictated by MARNI Dempsey for Brice Dempsey MD cc: MD Fabricio Garcia, DO BRUCE
--- NOTE | 2019-05-25 16:16 | Diag Imaging Result Doc PS360 ---
EXAM: CHEST-2 VIEWS 05/25/2019 HISTORY: pneumonia TECHNIQUE: PA and lateral chest COMMENT: There are ill-defined opacities present in the right base which were also probably present on 05/23/2019. Today's study is slightly better expanded than on the previous examination. There is a PICC line on the left with its tip in the area of the superior vena cava. IMPRESSION: Right middle and/or lower lobe bronchopneumonia. Electronically signed by Shawn Ansari 05/25/2019 4:14 PM
[2019-05-25] MEDS ORDERED: DUONEB (A & A) INH ONE (18:21)
--- NOTE | 2019-05-25 18:49 | PROGRESS NOTE ---
DATE: 05/25/2019 SUBJECTIVE: Hospital day #3, patient having been admitted on 05/23/2019. Over the past 24 hours no significant findings. I did speak this morning with Infectious Disease who has advised that tomorrow will be the patient's last day of Invanz. At that point she will need a re-evaluation for a urinary tract standpoint and the PICC line will likely need to be discontinued. This can be done as an outpatient. Additional studies include procalcitonin, which is pending at this time. Patient did received 20 g of IVIG yesterday for falling IgG levels. She has continued on Zyvox while hospitalized and continuing with the Invanz as well. Based on sputum with 1+ yeast, it was felt that she might benefit from oral Diflucan. However, Infectious Disease recommended stopping this agent. It was stopped on the evening of the . Biggest findings for the day include a cardiac echo which demonstrates mild to moderate tricuspid regurgitation and a rising PA pressure suggestive of pulmonary hypertension. Historical study dated 2013 demonstrate slightly increased from 43 mmHg to 50 mmHg. I suspect that this might be in part driven by obstructive sleep apnea. We did discuss outpatient workup for sleep apnea as well as potential evaluation at the Pulmonary Hypertension Clinic at [facility]. Vitals this afternoon, blood pressure 112/69, respirations 16, temperature at 98.5, saturating 98% on room air. T-max for her entire hospitalization was on 05/24 at 99.4. Again, she has not spiked a fever to 102+ which she reported on admission. Sputum culture, viral influenza, and blood cultures are all reviewed and noted to be unremarkable to date. Laboratory including a CMP and a CBC are anticipated for tomorrow. PHYSICAL EXAMINATION: HEENT: Unremarkable. Cardiovascular: Regular rate and rhythm. Lungs: Clear. There are no wheezes, rhonchi, or rales. Abdomen: Not examined. Extremities: Without significant peripheral edema. Neurological: Cranial nerves 2-12 are grossly intact. Patient is alert and oriented x3, without any cognitive deficiencies. IMPRESSION: A 58-year-old with Klebsiella pneumonia requiring IV antibiotics. She is now day #13 of 14 total days and will complete day #14 tomorrow. I have advised the patient that I anticipate discharging her from the medical service tomorrow with interval followup as anticipated. CT scan findings showing nonspecific changes in the right lower lobe will be either supported or negated by the procalcitonin which has been obtained by the Infectious Disease service. There are no new and/or additional recommendations or issues at this time. We will continue to follow clinically in this regard. Rounds note is dictated on the evening of the . cc: Fabricio Del Valle DO
[2019-05-25] MEDS: SINGULAIR PO SCH (21:04)
[2019-05-25] MEDS: ZYRTEC PO SCH (21:04)
[2019-05-26] MEDS: SUBOXONE 8 MG/2 MG SL SCH ×2 (03:36→10:32)
[2019-05-26] MEDS: ZYVOX PO SCH ×2 (03:36→06:06)
[2019-05-26 07:31] LABS: BASO# 0.03 X1000 (0.0-0.2); BASO% 0.7 % (0.0-0.8); EOS# 0.31 X1000 (0.0-0.7); EOS% 7.4 % (0.0-10.0); HEMATOCRIT 31.5 % (37.0-47.0); HEMOGLOBIN 9.9 g/dL (12.0-16.0); LYMPH# 1.31 X1000 (1.2-3.4); LYMPH% 31.4 % (20.5-51.1); MCH 28.6 PG (27-31); MCHC 31.4 g/dL (33-37); MONO# 0.38 X1000 (0.11-0.59); MONO% 9.1 % (1.7-9.3); MPV 10.3 FL (7.4-10.4); NEUT# 2.14 X1000 (1.4-6.5); NEUT% 51.4 % (42.2-75.2); PLT 251 X1000 (130-400); RBC 3.46 XMIL (4.2-5.4); RDW 12.9 % (11.5-14.5); WBC 4.17 X1000 (4.8-10.8)
[2019-05-26 07:59] LABS: IRON SATURATION 10 %; TIBC 305 ug/dL; TOTAL IRON 31 ug/dL (49-151); UNBOUND IRON 274 ug/dL (112-346)
[2019-05-26 08:02] LABS: AGAP 11; ALB/GLOB RATIO 1.2; ALBUMIN 3.6 g/dL (3.5-5.0); ALKALINE PHOSPHATASE 95 U/L (32-104); BUN 6 mg/dL (8-22); CALCIUM 8.5 mg/dL (8.8-10.2); CHLORIDE 102 mmol/L (98-107); COSMO 273; CREATININE 0.6 mg/dL (0.5-0.9); ESTIMATED GFR > 60; GLUCOSE 97 mg/dL (70-104); GOT 19 U/L (10-30); GPT 11 U/L (10-36); POTASSIUM 3.5 mmol/L (3.5-5.1); SODIUM 138 mmol/L (136-145); TCO2 25 mmol/L (25-35); TOTAL BILIRUBIN 0.19 mg/dL (0.20-1.00); TOTAL PROTEIN 6.6 g/dL (6.3-8.3)
[2019-05-26] MEDS: VENTOLIN HFA INH PRN ×2 (08:13→11:33)
[2019-05-26] MEDS ORDERED: PROVIGIL PO SCH (09:00)
[2019-05-26] MEDS: GLUCOPHAGE XR PO SCH (10:31)
[2019-05-26] MEDS: SYNTHROID PO SCH (10:31)
[2019-05-26] MEDS: LINZESS PO SCH (10:31)
[2019-05-26] MEDS: LEXAPRO PO SCH (10:31)
[2019-05-26] MEDS: TENORMIN PO SCH (10:31)
[2019-05-26] MEDS: MUCINEX PO SCH (10:32)
[2019-05-26] MEDS: LASIX PO SCH (10:32)
[2019-05-26] MEDS: FOLIC ACID PO SCH (10:32)
[2019-05-26] MEDS: VITAMIN D PO SCH (10:32)
--- NOTE | 2019-05-26 10:36 | DISCHARGE SUMMARY ---
ADMISSION DATE: 05/23/2019 DISCHARGE DATE: 05/26/2019 DISCHARGE DIAGNOSES: 1. Febrile illness as reported by patient prior to admission with fever greater than 102. This not substantiated the during admission. Negative sputum culture, negative blood cultures and negative urine cultures to date. 2. IgG deficiency putting the patient at long-term risk for infectious processes. 3. Extended spectrum Beta lactamase positive Klebsiella pneumoniae urinary tract infection history for which she has been receiving outpatient Invanz 1 gram daily. She is completing 14 days of IV antibiotics as of 05/26/2019. 4. Lower extremity edema. Likely multifactorial but component of pulmonary hypertension cannot be ruled out. Patient with cardiac echo in 2014 now interval follow up cardiac echo in 2019. Findings consistent with mild to moderate tricuspid regurgitation and high pulmonary pressures, previously at 43 mmHg now 50 mmHg. We had discussed the possibility of referral to specialty Clinic at [facility]. 5. Probable pulmonary edema. As noted on CT scan dated 05/24/2019. 6. Anemia not otherwise specified. Hemoglobin and hematocrit at 10.6 and 33.2. 7. Hyperkalemia present. Potassium 5.5 chemistry pending at the time of discharge. 8. Immunoglobulin deficiency, IgG .IgG levels measured during this admission at 569 patient having received 20 gram IV of IVIg. This is her 1st some IVIg infusion other immunoglobulin levels IgA at 184 and IgM at 62. PROCEDURES: CT scan of the chest in a 05/24/2019: Indication fever antibiotics and abnormal chest x-ray. Cardiac echo on 05/24/2019: Mild to moderate TR with pulmonary hypertension and an./ Ejection fraction at 60%. Mild LVH is suggested. CONSULTATIONS DURING ADMISSION: Infectious Disease. HOSPITAL COURSE: Patient was admitted through the ER to the Internal Medicine service on 05/23/2019 after being diverted to the emergency room by the Infectious Disease service. This was for a fever to 102+ while taking IV antibiotics. Chest x-ray demonstrating nonspecific changes in the right middle and right lower lobe suggestive of pneumonia. Cultures were obtained. She did not present with septic criteria nor did she require any time in the intensive care unit for respiratory failure. Infectious disease provided additional oversight including the addition of his Zyvox and infusion of IVIg. Based on non resolving up pulmonary infiltrate a CT scan of the chest was obtained showing more of an interstitial pulmonary edematous process rather than a true consolidative process. A pro calcitonin is pending at the time of discharge. She will have completed 14 days of IV antibiotics. As of today she will be discharged to home continuing on doxycycline 100 mg b.i.d. at least for the next 5 to 7 days. She does have interval followup with infectious disease next week as well as with internal medicine and post hospital follow up. DISCHARGE MEDICATIONS: Include albuterol 2 puffs q.4 hours p.r.n., atenolol 50 mg once daily, Astelin 2 puffs/spray b.i.d., Zyrtec 10 mg p.o. daily, vitamin D 2000 international units once daily, Lexapro 20 mg once daily, folic acid 1 mg once daily, Lasix 20 mg once daily, Synthroid 50 mcg once daily, Linzess 290 mg once daily, Victoza 1.8 mg injected once daily, metformin 500 mg p.o. b.i.d., modafinil 400 mg daily, Singulair 10 mg p.o. daily, Tylenol 650 over the counter p.r.n.,Suboxone 8/2 sublingual film 1/2 tab/one half film q.6 hours, Celebrex 100 mg p.o. daily, and Patanase spray all 1 nasal spray b.i.d. Additional medication including doxycycline 100 mg p.o. b.i.d. DISPOSITION: The patient is released with no further issues at this time. She understands the course of treatment and plan. Note is dictated on the morning of discharge. cc: Fabricio Del Valle DO
[2019-05-26] MEDS: VICTOZA SUBQ SCH (10:37)
[2019-05-26] MEDS: ASTELIN NASAL SPRAY NAS SCH (10:37)
[2019-05-26] MEDS: INVANZ 1 GM/NS 1 GM/50 ML IVPB IV SCH (12:01)
[2019-05-26 12:06] VITALS: BP 118/73
== END 2019-05-26 13:32 | disposition home or self-care (01) | DRG 189 ==
LOC: 1N 10:00 → ED 10:00 → OBSVTOIN 10:01 → 3N 05-24 15:05
PROVIDERS: ADMIT Internal Medicine; ATTEND Internal Medicine